=== PATIENT | female | born 1980 | race African-American/Black ===

== ENCOUNTER 2016-12-14 11:07 | Emergency (ER) | payer MEDICAID ==
[2016-12-14] MEDS ORDERED: IBUPROFEN 800 MG TABLET PO ONE (11:54)
--- NOTE | 2016-12-14 12:29 | ER Document Report ---
ED Hand/Wrist Injury - General Chief Complaint: Wrist Pain Stated Complaint: LEFT WRIST PAIN Time Seen by Provider: 12/14/16 11:34 Mode of Arrival: Ambulatory Information source: Patient Notes: 36-year-old female presents to ED for left wrist pain 2 weeks. With numbness feeling to entire hand. She states her whole hand is swelling. TRAVEL OUTSIDE OF THE [place] IN LAST 30 DAYS: No - HPI Injury to: Hand - Pain and swelling to the left hand and wrist Onset: Other - 2 weeks Timing: Waxing and waning Quality of pain: Pressure, Sharp Severity: Moderate Pain Level: 2 Context: Other - No injury - Related Data Allergies/Adverse Reactions: No Known Allergies Allergy (Verified 12/14/16 11:14) Past Medical History - General Information source: Patient - Social History Smoking Status: Current Some Day Smoker - 10 cigarettes a week Cigarette use (# per day): Yes Smoking Education Provided: Yes - Less than 2 minutes Frequency of alcohol use: None Drug Abuse: None Occupation: [employer] with: Family Family History: Reviewed & Not Pertinent. denies: Arthritis, CAD, COPD, CVA, DM , Hyperlipidemia, Hypertension, Malignancy, Thyroid Disfunction Patient has suicidal ideation: No Patient has homicidal ideation: No - Past Medical History Cardiac Medical History: Reports: Hx Hypertension - Hypertension during Pulmonary Medical History: Reports: None EENT Medical History: Reports: None Neurological Medical History: Reports: None Endocrine Medical History: Reports: None Renal/ Medical History: Reports: None Malignancy Medical History: Reports: None GI Medical History: Reports: None Musculoskeltal Medical History: Reports None Skin Medical History: Reports None Psychiatric Medical History: Reports: None Traumatic Medical History: Reports: None Infectious Medical History: Reports: None Past Surgical History: Reports: Hx Section - Immunizations Immunizations up to date: Yes Hx Diphtheria, Pertussis, Tetanus Vaccination: Yes Review of Systems - Review of Systems Constitutional: No symptoms reported EENT: No symptoms reported Cardiovascular: No symptoms reported Respiratory: No symptoms reported Gastrointestinal: No symptoms reported Genitourinary: No symptoms reported Female Genitourinary: No symptoms reported Musculoskeletal: Other - left hand and wrist pain Skin: No symptoms reported Hematologic/Lymphatic: No symptoms reported Neurological/Psychological: No symptoms reported Physical Exam - Vital signs Vitals: Temp Pulse Resp BP Pulse Ox 98.4 F 101 H 20 129/97 H 99 12/14/16 11:16 12/14/16 11:16 12/14/16 11:16 12/14/16 11:16 12/14/16 11:16 Interpretation: Normal - General General appearance: Appears well, Alert - HEENT Head: Normocephalic, Atraumatic Eyes: Normal Pupils: PERRL - Respiratory Respiratory status: No respiratory distress Chest status: Nontender Breath sounds: Normal Chest palpation: Normal - Cardiovascular Rhythm: Regular Heart sounds: Normal auscultation Murmur: No - Abdominal Inspection: Normal Distension: No distension Bowel sounds: Normal Tenderness: Nontender Organomegaly: No organomegaly - Back Back: Normal, Nontender - Extremities General upper extremity: Normal inspection, Normal color, Normal ROM, Normal temperature General lower extremity: Normal inspection, Nontender, Normal color, Normal ROM , Normal temperature, Normal weight bearing. No: Sofia's sign Wrist: Tender, Limited ROM. No: Abrasion, Axial load of thumb pain, Deformity, Dislocation, Ecchymosis, Instability, Laceration, Navicular tenderness Hand: Tender, No evidence of human bite, No evidence of FB, Swelling. No: Abrasion, Deformity, Dislocation, Ecchymosis, Instability, Laceration, Nail injury, Tendon deficit - Neurological Neuro grossly intact: Yes Cognition: Normal Orientation: AAOx4 [place] Coma Scale Eye Opening: Spontaneous [place] Coma Scale Verbal: Oriented Roberto Coma Scale Motor: Obeys Commands Roberto Coma Scale Total: 15 Speech: Normal Motor strength normal: LUE, RUE, LLE, RLE Sensory: Normal - Psychological Associated symptoms: Normal affect, Normal mood - Skin Skin Temperature: Warm Skin Moisture: Dry Skin Color: Normal Course - Re-evaluation Re-evalutation: 12/14/16 12:50 Discussed results of x-ray. Patient was given ibuprofen for her discomfort and cock-up splint applied to the left wrist for her discomfort. Patient to follow- up with orthopedics. Discharged home - Vital Signs Vital signs: Temp Pulse Resp BP Pulse Ox 98.4 F 78 16 146/88 H 99 12/14/16 11:16 12/14/16 13:27 12/14/16 13:27 12/14/16 13:27 12/14/16 13:27 - Diagnostic Test Radiology reviewed: Image reviewed, Reports reviewed Procedures - Immobilization Left Wrist Immobilizer type: Cock-up Performed by: PCT Post-Proc Neuro Vasc Exam: Normal Alignment checked and good: Yes Discharge - Discharge Clinical Impression: Left wrist pain, Left hand pain Condition: Stable Disposition: HOME, SELF-CARE Additional Instructions: He was seen today for left wrist and hand pain you have had for the last 2 weeks. She states she has not had any new injuries. You state there is some numbness to the hand. You will be instructed to follow-up with orthopedics. A cock-up splint will be applied to your wrist to help with the discomfort. You will need to take over- the-counter ibuprofen for your pain. Elevate the hand when possible. FOLLOW-UP CARE: If you have been referred to a physician for follow-up care, call the physician s office for an appointment as you were instructed or within the next two days. If you experience worsening or a significant change in your symptoms, notify the physician immediately or return to the Emergency Department at any time for re-evaluation. Forms: Smoking Cessation Education, Return to Work Referrals: TAWANNA DOWLING MD [ACTIVE STAFF] - Follow up as needed
--- NOTE | 2016-12-14 12:30 | RADIOLOGY REPORT (SQ) ---
EXAM DESCRIPTION: HAND LEFT 3 VIEWS COMPLETED DATE/TIME: 12/14/2016 12:23 pm REASON FOR STUDY: pain swelling COMPARISON: LEFT WRIST THREE VIEWS SAME DATE EXAM PARAMETERS: NUMBER OF VIEWS: Three views. TECHNIQUE: AP, lateral and oblique radiographic images acquired of the left hand. LIMITATIONS: None. FINDINGS: MINERALIZATION: Normal. BONES: No acute fracture or dislocation. No worrisome bone lesions. JOINTS: No effusions. SOFT TISSUES: No soft tissue swelling. No foreign body. OTHER: No other significant finding. IMPRESSION: NEGATIVE STUDY OF THE LEFT HAND. NO RADIOGRAPHIC EVIDENCE OF ACUTE INJURY. TECHNICAL DOCUMENTATION: JOB ID: [id number] [employer]- All Rights Reserved
--- NOTE | 2016-12-14 12:31 | RADIOLOGY REPORT (SQ) ---
EXAM DESCRIPTION: WRIST LEFT 3 VIEWS COMPLETED DATE/TIME: 12/14/2016 12:23 pm REASON FOR STUDY: pain swelling COMPARISON: Left hand three views same date NUMBER OF VIEWS: Three views. TECHNIQUE: AP, lateral, and oblique radiographic images acquired of the left wrist. LIMITATIONS: None. FINDINGS: MINERALIZATION: Normal. BONES: No acute fracture or dislocation. No worrisome bone lesions. Normal alignment. SOFT TISSUES: No soft tissue swelling. No foreign body. OTHER: No other significant finding. IMPRESSION: NEGATIVE STUDY OF THE LEFT WRIST. NO RADIOGRAPHIC EVIDENCE OF ACUTE INJURY. TECHNICAL DOCUMENTATION: JOB ID: [id number] [employer]- All Rights Reserved
[2016-12-14 13:30] VITALS: BP 146/88
== END 2016-12-14 13:27 | disposition home or self-care (01) ==
LOC: ER 11:07
DX: M79.642 Pain in left hand (principal); M25.532 Pain in left wrist; R20.0 Anesthesia of skin; F17.210 Nicotine dependence, cigarettes, uncomplicated
CPT/HCPCS: 99283; 73130; 73110; L3908; J3490

== ENCOUNTER 2017-01-02 12:08 | Emergency (ER) | payer MEDICAID ==
[2017-01-02 13:16] LABS: ABSOLUTE EOSINOPHILS # (AUTO) 0.2 10^3/uL (0.0-0.6); ABSOLUTE LYMPHOCYTES (AUTO) 1.2 10^3/uL (0.5-4.7); ABSOLUTE MONOCYTES (AUTO) 0.5 10^3/uL (0.1-1.4); ABSOLUTE NEUT (AUTO) 3.1 10^3/uL (1.7-8.2); BASOPHILS % (AUTO) 0.8 % (0-2); EOSINOPHILS % (AUTO) 3.5 % (0-6); HEMATOCRIT 42.3 % (36.0-47.0); HEMOGLOBIN 13.6 g/dL (12.0-15.5); HGB HCT DIFFERENCE -1.5; LYMPHOCYTES % (AUTO) 23.7 % (13-45); MEAN CORPUSCULAR HEMOGLOBIN 26.7 pg (27.0-33.4); MEAN CORPUSCULAR HGB CONC 32.2 g/dL (32.0-36.0); MEAN CORPUSCULAR VOLUME 83 fl (80-97); RED BLOOD COUNT 5.11 10^6/uL (3.72-5.28); RED CELL DISTRIBUTION WIDTH 17.1 % (11.5-14.0); WHITE BLOOD COUNT 4.9 10^3/uL (4.0-10.5)
[2017-01-02 13:35] LABS: ALANINE AMINOTRANSFERASE 22 U/L (9-52); ALBUMIN 3.2 g/dL (3.5-5.0); ALKALINE PHOSPHATASE 71 U/L (38-126); ANION GAP 7 (5-19); ASPARTATE AMINO TRANSFERASE 16 U/L (14-36); BILIRUBIN,DIRECT 0.3 mg/dL (0.0-0.4); BILIRUBIN,TOTAL 0.5 mg/dL (0.2-1.3); BLOOD UREA NITROGEN 9 mg/dL (7-20); CALCIUM 8.5 mg/dL (8.4-10.2); CARBON DIOXIDE 28 mmol/L (22-30); CHLORIDE 105 mmol/L (98-107); CREATININE RESULT 1.04 mg/dL (0.52-1.25); GLUCOSE 85 mg/dL (75-110); POTASSIUM 3.7 mmol/L (3.6-5.0)
[2017-01-02 13:54] LABS: APPEARANCE,URINE CLEAR; BILIRUBIN,URINE NEGATIVE (NEGATIVE); GLUCOSE, URINE NEGATIVE (NEGATIVE); KETONES,URINE NEGATIVE (NEGATIVE); NITRITE,URINE NEGATIVE (NEGATIVE); PROTEIN,URINE NEGATIVE (NEGATIVE)
[2017-01-02 13:55] LABS: LEUKOCYTE ESTERASE,URINE NEGATIVE (NEGATIVE)
[2017-01-02 14:08] LABS: BACTERIA,URINE TRACE /HPF; RBC,URINE NONE SEEN /HPF; WBC,URINE NONE SEEN /HPF
--- NOTE | 2017-01-02 14:29 | ER Document Report ---
ED Dizziness/Weakness - General Chief Complaint: Dizziness Stated Complaint: DIZZINESS Time Seen by Provider: 01/02/17 12:36 Mode of Arrival: Ambulatory Information source: Patient Notes: Patient states that she was going to donate plasma today and when they took her blood pressure they told it was high. She states she then went to urgent care and was given a prescription for Norvasc. She states that she took 1 Norvasc and recheck her blood pressure but it was still high so she came to the emergency department. She states she has been feeling somewhat dizzy over the last week. She denies any shortness of breath or chest pain. She denies any other significant pains. Nothing appears to make her symptoms better or worse. There is no radiation of the pain. Symptoms have been intermittent. TRAVEL OUTSIDE OF THE [place] IN LAST 30 DAYS: No - Related Data Allergies/Adverse Reactions: No Known Allergies Allergy (Verified 01/02/17 12:29) Past Medical History - General Information source: Patient - Social History Smoking Status: Current Every Day Smoker Frequency of alcohol use: Occasional Drug Abuse: None Family History: Reviewed & Not Pertinent. denies: Arthritis, CAD, COPD, CVA, DM , Hyperlipidemia, Hypertension, Malignancy, Thyroid Disfunction Patient has suicidal ideation: No Patient has homicidal ideation: No - Past Medical History Cardiac Medical History: Reports: Hx Hypertension - Hypertension during Renal/ Medical History: Denies: Hx Peritoneal Dialysis Past Surgical History: Reports: Hx Section - Immunizations Immunizations up to date: Yes Hx Diphtheria, Pertussis, Tetanus Vaccination: Yes Review of Systems - Review of Systems Constitutional: denies: Chills, Fever Cardiovascular: denies: Chest pain, Palpitations Respiratory: denies: Cough, Short of breath -: Yes All other systems reviewed and negative Physical Exam - Vital signs Interpretation: Hypertensive - General General appearance: Appears well, Alert - HEENT Head: Normocephalic, Atraumatic Eyes: Normal Pupils: PERRL - Respiratory Respiratory status: No respiratory distress Chest status: Nontender Breath sounds: Normal Chest palpation: Normal - Cardiovascular Rhythm: Regular Heart sounds: Normal auscultation Murmur: No - Abdominal Inspection: Normal Distension: No distension Bowel sounds: Normal Tenderness: Nontender Organomegaly: No organomegaly - Back Back: Normal, Nontender - Extremities General upper extremity: Normal inspection, Nontender, Normal color, Normal ROM , Normal temperature General lower extremity: Normal inspection, Nontender, Normal color, Normal ROM , Normal temperature, Normal weight bearing. No: Sofia's sign - Neurological Neuro grossly intact: Yes Cognition: Normal Orientation: AAOx4 Roberto Coma Scale Eye Opening: Spontaneous [place] Coma Scale Verbal: Oriented [place] Coma Scale Motor: Obeys Commands Roberto Coma Scale Total: 15 Speech: Normal Motor strength normal: LUE, RUE, LLE, RLE Sensory: Normal - Psychological Associated symptoms: Normal affect, Normal mood - Skin Skin Temperature: Warm Skin Moisture: Dry Skin Color: Normal Course - Laboratory Result Diagrams: 01/02/17 13:00 01/02/17 13:00 Laboratory results interpreted by me: 01/02/17 01/02/17 01/02/17 13:00 13:00 13:00 MCH 26.7 L RDW 17.1 H NT-Pro-B Natriuret Pep 171 H Total Protein 6.0 L Albumin 3.2 L Urine Urobilinogen 01/02/17 13:23 MCH RDW NT-Pro-B Natriuret Pep Total Protein Albumin Urine Urobilinogen 2.0 H - EKG Interpretation by Me EKG shows normal: Sinus rhythm Rate: Normal Rhythm: NSR [place]/QRS: No: Right axis deviation, Left axis deviation Discharge - Discharge Clinical Impression: Uncontrolled hypertension Condition: Stable Disposition: HOME, SELF-CARE Instructions: Dizziness ([facility]), High Blood Pressure ([facility]) Additional Instructions: Please follow-up with your family doctor as instructed. Please take your Norvasc every day as instructed. Forms: Elevated Blood Pressure Referrals: ELIJAH HOFFMAN MD [ACTIVE STAFF] - Follow up in 1 week
--- NOTE | 2017-01-02 14:35 | RADIOLOGY REPORT (SQ) ---
EXAM DESCRIPTION: CHEST PA/LAT COMPLETED DATE/TIME: 01/02/2017 2:15 pm REASON FOR STUDY: cough/congestion COMPARISON: None. NUMBER OF VIEWS: Two view. TECHNIQUE: Frontal and lateral radiographic views of the chest acquired. LIMITATIONS: None. FINDINGS: LUNGS AND PLEURA: No opacities, masses or pneumothorax. No pleural effusion. MEDIASTINUM AND HILAR STRUCTURES: No masses or contour abnormalities. HEART AND VASCULATURE: Heart normal size. No evidence for failure. BONY STRUCTURES: No acute findings. HARDWARE: None. OTHER: No other significant finding. IMPRESSION: NO SIGNIFICANT RADIOGRAPHIC FINDING IN THE CHEST. TECHNICAL DOCUMENTATION: JOB ID: [id number] [employer]- All Rights Reserved
[2017-01-02 15:01] VITALS: BP 154/103
--- NOTE | 2017-01-02 19:54 | EKG REPORT ---
SEVERITY:- BORDERLINE ECG - SINUS RHYTHM PROBABLE LEFT ATRIAL ABNORMALITY : Confirmed by: Jasvir Rossi MD 02-Jan-2017 19:54:09
== END 2017-01-02 15:01 | disposition home or self-care (01) ==
LOC: ER 12:08
DX: I10 Essential (primary) hypertension (principal); R42 Dizziness and giddiness; Z79.899 Other long term (current) drug therapy; F17.200 Nicotine dependence, unspecified, uncomplicated
CPT/HCPCS: 36415; 71020; 80053; 81001; 81025; 83880; 85025; 93005; 93010; 99284